=== PATIENT | male | born 1975 | race Caucasian/White ===

== ENCOUNTER 2024-08-17 08:40 | Inpatient (IN) | payer BC ==
[2024-08-17 09:19] LABS: Basophils % (A) 1 %; Eosinophils # (A) 0.1 k/uL (0-0.7); Eosinophils % (A) 1 %; HCT 48.8 % (39.0-53.0); HGB 17.2 gm/dL (13.0-17.5); Lymphocytes # (A) 2.2 k/uL (1.0-4.8); Lymphocytes % (A) 24 %; MCH 30.2 pg (25.0-35.0); MCHC 35.1 g/dL (31.0-37.0); MCV 85.9 fL (80.0-100.0); Monocytes # (A) 0.5 k/uL (0-1.0); Monocytes % (A) 5 %; Neutrophils # (A) 6.4 k/uL (1.3-7.7); Neutrophils % (A) 68 %; Platelet Count 214 k/uL (150-450); RBC 5.68 m/uL (4.30-5.90); RDW 13.6 % (11.5-15.5); WBC 9.4 k/uL (3.8-10.6)
[2024-08-17 09:29] LABS: ALT 20 U/L (4-49); AST 16 U/L (17-59); African American GFR (CKD) >90 (>60 ml/min/1.73 sqM); Albumin 4.6 g/dL (3.5-5.0); Alkaline Phosphatase 77 U/L (38-126); Anion Gap 15 mmol/L; Blood Urea Nitrogen 15 mg/dL (9-20); Calcium 10.1 mg/dL (8.4-10.2); Carbon Dioxide 22 mmol/L (22-30); Chloride 99 mmol/L (98-107); Glucose 212 mg/dL (74-99); Magnesium 1.7 mg/dL (1.6-2.3); Non-African American GFR(CKD) 86 (>60 ml/min/1.73 sqM); Potassium 3.8 mmol/L (3.5-5.1); Sodium 136 mmol/L (137-145); Total Bilirubin 1.6 mg/dL (0.2-1.3)
--- NOTE | 2024-08-17 09:30 | XR ---
EXAMINATION TYPE: XR chest 2V DATE OF EXAM: 08/17/2024 9:27 AM COMPARISON: None. CLINICAL INDICATION: Male, 49 years old with history of dysrhythmia, TECHNIQUE: XR chest 2V view(s) obtained. FINDINGS: The heart size is normal. The pulmonary vasculature is normal. The lungs are clear. IMPRESSION: 1. No acute pulmonary process. [facility], , 08/17/2024 9:28 AM
[2024-08-17 09:36] LABS: Partial Thromboplastin Time 22.8 sec (22.0-30.0); Prothrombin Time 10.9 sec (10.0-12.5)
[2024-08-17] MEDS ORDERED: HEPARIN SODIUM 1,000 UN/ML (10ML VL) IV PRN (09:40)
--- NOTE | 2024-08-17 09:50 | ED ---
General Adult HPI - General Chief complaint: Arrhythmia/Palpitations Stated complaint: AFIB Time Seen by Provider: 08/17/24 08:42 Source: patient Mode of arrival: wheelchair Limitations: no limitations - History of Present Illness Initial comments: Dictation was produced using [employer] dictation software. please excuse any grammatical, word or spelling errors. Chief Complaint: 49-year-old male presents with 4 days of palpitations History of Present Illness: Patient is a 49-year-old male has history of diabetes dyslipidemia hypertension states that for the last 3 to 4 days he started to have some palpitations. 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 States that his watch told that that he was having A-fib. Thought that he was coming down with a cold. He went online and read that he should seek medical attention if he has multiple days symptoms of A-fib. Patient complains of some mild associated left anterior chest pressure. No radiation of symptoms. No associated diaphoresis or nausea The ROS documented in this emergency department record has been reviewed and confirmed by me. Those systems with pertinent positive or negative responses have been documented in the HPI. All other systems are other negative and/or noncontributory. - Related Data Allergies Allergy/AdvReac Type Severity Reaction Status Date / Time No Known Allergies Allergy Verified 08/17/24 08:44 Review of Systems ROS Statement: Those systems with pertinent positive or pertinent negative responses have been documented in the HPI. ROS Other: All systems not noted in ROS Statement are negative. Past Medical History Past Medical History: Diabetes Mellitus, Hyperlipidemia, Hypertension Past Surgical History: Orthopedic Surgery Smoking Status: Never smoker Past Alcohol Use History: Occasional Past Drug Use History: None Reported General Exam - General Exam Comments Initial Comments: PHYSICAL EXAM: General Impression: Alert and oriented x3, not in acute distress HEENT: Normocephalic atraumatic, extra-ocular movements intact, pupils equal and reactive to light bilaterally, mucous membranes moist. Cardiovascular: H irregularly irregular Chest: Able to complete full sentences, no retractions, no tachypnea Abdomen: abdomen soft, non-tender, non-distended, no organomegaly Musculoskeletal: Pulses present and equal in all extremities, no peripheral edema Motor: no focal deficits noted Neurological: CN II-XII grossly intact, no focal motor or sensory deficits noted Skin: Intact with no visualized rashes Psych: Normal affect and mood Limitations: no limitations Course Vital Signs 08/17/24 08/17/24 08:44 09:17 Temperature 97.5 F L Pulse Rate 64 154 H Respiratory 20 20 Rate Blood Pressure 164/109 139/90 O2 Sat by Pulse 99 98 Oximetry EKG Findings - EKG Comments: EKG Findings:: My EKG interpretation: Ventricular rate 157, A-fib with RVR, QRS 89, QTc 367. No AK prolongation, no QTC prolongation, no ST or T-wave changes noted. Overall this EKG consistent with new onset A-fib Medical Decision Making - Medical Decision Making Was pt. sent in by a medical professional or institution (, PA, [facility], urgent care, hospital, or penitentiary...) When possible be specific @ -No Did you speak to anyone other than the patient for history (EMS, parent, family, police, friend...)? What history was obtained from this source @ -No Did you review nursing and triage notes (agree or disagree)? Why? @ -I reviewed and agree with nursing and triage notes Were old charts reviewed (outside hosp., previous admission, EMS record, old EKG, old radiological studies, urgent care reports/EKG's, penitentiary records)? Report findings @ -No old charts were reviewed Differential Diagnosis (chest pain, altered mental status, abdominal pain women, abdominal pain men, vaginal bleeding, musculoskeletal, weakness, fever, dyspnea, syncope, headache, dizziness, GI bleed, back pain, seizure, CVA, palpatations, mental health)? @ - Differential Palpitations: Ventricular arrhythmias, atrial arrhythmias, myocardial infarction, anemia, thyrotoxicosis, electrolyte imbalance, hypokalemia, pulmonary embolism, pulmonary disease, drugs, alcohol, anxiety, stress.... This is not meant to be an all-inclusive list. EKG interpreted by me (3pts min.). @ -See above X-rays interpreted by me (1pt min.). @ -Chest x-rays are nonacute CT interpreted by me (1pt min.). @ -None done U/S interpreted by me (1pt. min.). @ -None done What testing was considered but not performed or refused? (CT, X-rays, U/S, labs)? Why? @ -None What meds were considered but not given or refused? Why? @ -None Was smoking cessation discussed for >3mins.? @ -No Were there social determinants of health that impacted care today? How? (Homelessness, low income, unemployed, alcoholism, drug addiction, transportation, low edu. Level, literacy, decrease access to med. care, half-way, rehab)? @ -No Was there de-escalation of care discussed even if they declined (Discuss DNR or withdrawal of care, Hospice)? DNR status @ -No What co-morbidities impacted this encounter? (DM, HTN, Smoking, COPD, CAD, Cancer, CVA, ARF, Chemo, Hep., AIDS, mental health diagnosis, sleep apnea, morbid obesity)? @ -None Was patient admitted / discharged? Hospital course, mention meds given and route, prescriptions, significant lab abnormalities, going to OR and other pertinent info. @ -49-year-old male with new onset A-fib. Vital signs shows tachycardia. Rest of vital signs within acceptable limits. Laboratory evaluation is within acceptable limits. Patient started Cardizem and heparin. Will be admitted with consultation cardiology for inpatient management of new onset A-fib Did you discuss the management of the patient with other professionals (professionals i.e. , PA, [facility] CARVER, lab, RT, psych nurse, social media marketer, operations chief, teacher, security control room officer, shelter case manager)? Give summary @ -No Was critical care preformed (if so, how long)? @ -Yes, 33 minutes for management of tachydysrhythmia Undiagnosed new problem with uncertain prognosis? @ -No Drug Therapy requiring intensive monitoring for toxicity (Heparin, Nitro, Insulin, Cardizem)? @ -No Were any procedures done? @ -No Diagnosis/symptom? Acute, or Chronic, or Acute on Chronic? Uncomplicated (without systemic symptoms) or Complicated (systemic symptoms)? @ -A-fib with RVR Side effects of treatment? @ -No Exacerbation, Progression, or Severe Exacerbation? @ -No Poses a threat to life or bodily function? How? (Chest pain, USA, PA, pneumonia, PE, COPD, DKA, ARF, appy, cholecystitis, CVA, Diverticulitis, Homicidal, Suicidal, threat to staff... and all critical care pts) @ -yes - Lab Data Result diagrams: 08/17/24 09:15 01/13/25 09:15 Lab Results 08/17/24 08/17/24 08/17/24 Range/Units 09:15 09:15 09:15 WBC 9.4 (3.8-10.6) k/uL RBC 5.68 (4.30-5.90) m/uL Hgb 17.2 (13.0-17.5) gm/dL Hct 48.8 (39.0-53.0) % MCV 85.9 (80.0-100.0) fL MCH 30.2 (25.0-35.0) pg MCHC 35.1 (31.0-37.0) g/dL RDW 13.6 (11.5-15.5) % Plt Count 214 (150-450) k/uL MPV 9.0 Neutrophils % 68 % Lymphocytes % 24 % Monocytes % 5 % Eosinophils % 1 % Basophils % 1 % Neutrophils # 6.4 (1.3-7.7) k/uL Lymphocytes # 2.2 (1.0-4.8) k/uL Monocytes # 0.5 (0-1.0) k/uL Eosinophils # 0.1 (0-0.7) k/uL Basophils # 0.0 (0-0.2) k/uL PT 10.9 (10.0-12.5) sec INR 1.0 (<1.2) APTT 22.8 (22.0-30.0) sec Sodium 136 L (137-145) mmol/L Potassium 3.8 (3.5-5.1) mmol/L Chloride 99 (98-107) mmol/L Carbon Dioxide 22 (22-30) mmol/L Anion Gap 15 mmol/L BUN 15 (9-20) mg/dL Creatinine 1.03 (0.66-1.25) mg/dL Est GFR (CKD-EPI)AfAm >90 (>60 ml/min/1.73 sqM) Est GFR (CKD-EPI)NonAf 86 (>60 ml/min/1.73 sqM) Glucose 212 H (74-99) mg/dL Calcium 10.1 (8.4-10.2) mg/dL Magnesium 1.7 (1.6-2.3) mg/dL Total Bilirubin 1.6 H (0.2-1.3) mg/dL AST 16 L (17-59) U/L ALT 20 (4-49) U/L Alkaline Phosphatase 77 (38-126) U/L Troponin I (0.000-0.034) ng/mL Total Protein 7.0 (6.3-8.2) g/dL Albumin 4.6 (3.5-5.0) g/dL 08/17/24 Range/Units 09:15 WBC (3.8-10.6) k/uL RBC (4.30-5.90) m/uL Hgb (13.0-17.5) gm/dL Hct (39.0-53.0) % MCV (80.0-100.0) fL MCH (25.0-35.0) pg MCHC (31.0-37.0) g/dL RDW (11.5-15.5) % Plt Count (150-450) k/uL MPV Neutrophils % % Lymphocytes % % Monocytes % % Eosinophils % % Basophils % % Neutrophils # (1.3-7.7) k/uL Lymphocytes # (1.0-4.8) k/uL Monocytes # (0-1.0) k/uL Eosinophils # (0-0.7) k/uL Basophils # (0-0.2) k/uL PT (10.0-12.5) sec INR (<1.2) APTT (22.0-30.0) sec Sodium (137-145) mmol/L Potassium (3.5-5.1) mmol/L Chloride (98-107) mmol/L Carbon Dioxide (22-30) mmol/L Anion Gap mmol/L BUN (9-20) mg/dL Creatinine (0.66-1.25) mg/dL Est GFR (CKD-EPI)AfAm (>60 ml/min/1.73 sqM) Est GFR (CKD-EPI)NonAf (>60 ml/min/1.73 sqM) Glucose (74-99) mg/dL Calcium (8.4-10.2) mg/dL Magnesium (1.6-2.3) mg/dL Total Bilirubin (0.2-1.3) mg/dL AST (17-59) U/L ALT (4-49) U/L Alkaline Phosphatase (38-126) U/L Troponin I 0.022 (0.000-0.034) ng/mL Total Protein (6.3-8.2) g/dL Albumin (3.5-5.0) g/dL Disposition Clinical Impression: Atrial fibrillation Disposition: ADMITTED IP TO THIS HOSP Condition: Serious Referrals: Kelly Pate DO [Primary Care Provider] - 1-2 days Decision Time: 10:34
[2024-08-17] MEDS: HEPARIN SODIUM 1,000 UN/ML (10ML VL) IV ONE (09:57)
[2024-08-17] MEDS: HEPARIN SOD,PORK IN 0.45% NACL 25,000 UNIT in 0.45% NACL 1 250ML.BAG IV SCH (09:58)
[2024-08-17] MEDS: ASPIRIN 81 MG PO STA (10:00)
[2024-08-17] MEDS: DILTIAZEM 125 MG in SODIUM CHLORIDE 0.9% 100 ML IV SCH (10:17)
[2024-08-17] MEDS: DILTIAZEM DRIP BOLUS FROM BAG 1 MG SOLN IV ONE (10:19)
[2024-08-17] MEDS ORDERED: NALOXONE 0.4 MG/ML 1 ML VIAL IV PRN (10:32)
[2024-08-17] MEDS: SODIUM CHLORIDE 0.9% 1,000 ML IV SCH (11:10)
[2024-08-17] MEDS ORDERED: DEXTROSE 50% SYRINGE 50 ML IVP PRN ×2 (12:23)
[2024-08-17 12:43] LABS: Glucose,Whole Blood 128 mg/dL (70-110)
[2024-08-17] MEDS: INSULIN ASPART (NovoLOG) 100 UNIT/ML VIAL SQ SCH (12:55)
[2024-08-17] MEDS: APIXABAN 5 MG TAB PO SCH (12:58)
[2024-08-17] MEDS: METOPROLOL TARTRATE 50 MG TAB PO SCH (12:58)
--- NOTE | 2024-08-17 13:07 | P.CRDCN ---
History of Present Illness Consult date: 08/17/24 History of present illness: - . HPI: This is a 49-year-old somewhat obese gentleman with type 2 diabetes hypertension hyperlipidemia came into the emergency room complaining of palpitations at least for the last 72 hours. This started on Saturday. 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 He also had a flulike illness as well. With this symptoms he came in and he is in atrial fibrillation with a moderate ventricular rate. He seems to be handling the arrhythmia well no chest pain to suggest angina. Troponin levels are unremarkable. EKG suggests atrial fibrillation with a nonspecific ST-T changes. He has been initiated on heparin and Cardizem drip. I am recommending that I will initiate him on Eliquis discontinue heparin after Eliquis is given and then add metoprolol tartrate 50 mg twice daily and hopef ully with rate control he will improve. I will also set up for an echocardiogram. I explained to the patient the rationale for medications and suggested that he will need lifelong anticoagulation.. RELEVANT PAST MEDICAL HISTORY: Hypertension, type 2 diabetes with a hemoglobin A1c of 7.7 and also hyperlipidemia. He has a strong family history of premature CAD. MEDICATIONS: ALLERGIES:. REVIEW OF SYSTEMS:. PHYSICIAL EXAM: Vitals are stable no JVD S1-S2 heard normally with irregularity and rhythm lungs reveal decent air entry abdomen is soft lower extremities reveal normal pulses no edema Central nervous system is normal. IMPRESSION: 1. New onset atrial fibrillation with rapid ventricular rate. 2. Type 2 diabetes mellitus. 3. Benign hypertension. 4. Hypercholesterolemia. 5. Obesity. RECOMMENDATIONS: We will place him on Eliquis 5 mg twice daily discontinue heparin after Eliquis is given, metoprolol tartrate 50 mg twice daily and continue Cardizem drip for rate control. Hopefully will convert to sinus rhythm I will obtain echocardiogram. Findings reviewed with patient and family and the plan reviewed with patient and family.. Past Medical History Past Medical History: Diabetes Mellitus, Hyperlipidemia, Hypertension Past Surgical History: Orthopedic Surgery Smoking Status: Never smoker Past Alcohol Use History: Occasional Past Drug Use History: None Reported Medications and Allergies Home Medications Medication Instructions Recorded Confirmed Type Atorvastatin [Lipitor] 20 mg PO DAILY 08/17/24 08/17/24 History Losartan [Cozaar] 50 mg PO DAILY 08/17/24 08/17/24 History Naproxen Sodium [Aleve] 220 mg PO BID PRN 08/17/24 08/17/24 History Pioglitazone [Actos] 30 mg PO DAILY 08/17/24 08/17/24 History busPIRone HCL [Buspar] 7.5 mg PO BID 08/17/24 08/17/24 History metFORMIN HCL 1,000 mg PO BID 08/17/24 08/17/24 History Allergies Allergy/AdvReac Type Severity Reaction Status Date / Time No Known Allergies Allergy Verified 08/17/24 10:58 Physical Exam Vitals: Vital Signs Temp Pulse Resp BP Pulse Ox 08/17/24 12:03 98 16 103/79 96 08/17/24 09:17 154 H 20 139/90 98 08/17/24 08:44 97.5 F L 64 20 164/109 99 Intake and Output 08/16/24 08/17/24 08/17/24 22:59 06:59 14:59 Intake Total 25.987 Balance 25.987 Intake: Intake, IV Titration 25.987 Amount Heparin Sod,Pork in 0.45% 25.987 NaCl 25,000 unit In 0.45 % NaCl 1 250ml.bag @ 7.87 UNITS/KG/HR 9.995 mls/hr IV .Q24H [facility] Rx#: [id number] Other: Weight 127.006 kg Results 08/17/24 09:15 08/17/24 09:15 Cardiac Enzymes 08/17/24 08/17/24 Range/Units 09:15 09:15 AST 16 L (17-59) U/L Troponin I 0.022 (0.000-0.034) ng/mL Coagulation 08/17/24 Range/Units 09:15 PT 10.9 (10.0-12.5) sec APTT 22.8 (22.0-30.0) sec CBC 08/17/24 Range/Units 09:15 WBC 9.4 (3.8-10.6) k/uL RBC 5.68 (4.30-5.90) m/uL Hgb 17.2 (13.0-17.5) gm/dL Hct 48.8 (39.0-53.0) % Plt Count 214 (150-450) k/uL Comprehensive Metabolic Panel 08/17/24 Range/Units 09:15 Sodium 136 L (137-145) mmol/L Potassium 3.8 (3.5-5.1) mmol/L Chloride 99 (98-107) mmol/L Carbon Dioxide 22 (22-30) mmol/L BUN 15 (9-20) mg/dL Creatinine 1.03 (0.66-1.25) mg/dL Glucose 212 H (74-99) mg/dL Calcium 10.1 (8.4-10.2) mg/dL AST 16 L (17-59) U/L ALT 20 (4-49) U/L Alkaline Phosphatase 77 (38-126) U/L Total Protein 7.0 (6.3-8.2) g/dL Albumin 4.6 (3.5-5.0) g/dL Current Medications Generic Name Dose Route Start Last Admin Trade Name Freq PRN Reason Stop Dose Admin Apixaban 5 mg 08/17/24 12:30 08/17/24 12:58 Apixaban 5 Mg Tab PO 5 mg BID CAROLE Administration Protocol Dextrose/Water 25 ml 08/17/24 12:23 Dextrose 50% Syringe 50 Ml IVP PER PROTOCOL PRN Hypoglycemia Protocol Dextrose/Water 50 ml 08/17/24 12:23 Dextrose 50% Syringe 50 Ml IVP PER PROTOCOL PRN Hypoglycemia Protocol Heparin Sodium (Porcine) 0 unit 08/17/24 09:40 Heparin Sodium 1,000 Un/Ml (10ml Vl) IV 08/17/24 13:30 PER PROTOCOL PRN Low PTT Protocol Heparin Sodium/Sodium Chloride 250 mls @ 9.995 mls/hr 08/17/24 09:45 08/17/24 12:34 25,000 unit/ Sodium Chloride IV 08/17/24 13:30 0 units/kg/hr .Q24H CAROLE 0 mls/hr Titration Protocol 7.87 UNITS/KG/HR Diltiazem HCl 125 mg/ Sodium 125 mls @ 10 mls/hr 08/17/24 09:45 08/17/24 10:17 Chloride IV 10 mg/hr .[id number] CAROLE 10 mls/hr Administration 10 MG/HR Sodium Chloride 1,000 mls @ 75 mls/hr 08/17/24 10:45 08/17/24 11:10 Saline 0.9% IV 75 mls/hr .[id number] CAROLE Administration Insulin Aspart 0 unit 08/17/24 12:30 08/17/24 12:55 Insulin Aspart (Novolog) 100 Unit/Ml Vial SQ Not Given AC-TID [facility] Protocol Metoprolol Tartrate 50 mg 08/17/24 12:30 08/17/24 12:58 Metoprolol Tartrate 50 Mg Tab PO 50 mg BID CAROLE Administration Naloxone HCl 0.2 mg 08/17/24 10:32 Naloxone 0.4 Mg/Ml 1 Ml Vial IV Q2M PRN Opioid Reversal Intake and Output 08/16/24 08/17/24 08/17/24 22:59 06:59 14:59 Intake Total 25.987 Balance 25.987 Intake: Intake, IV Titration 25.987 Amount Heparin Sod,Pork in 0.45% 25.987 NaCl 25,000 unit In 0.45 % NaCl 1 250ml.bag @ 7.87 UNITS/KG/HR 9.995 mls/hr IV .Q24H [facility] Rx#: [id number] Other: Weight 127.006 kg Patient Weight 08/18/24 06:59 Weight 127.006 kg 08/17/24 09:15 08/17/24 09:15
--- NOTE | 2024-08-17 13:40 | P.HPIM ---
History of Present Illness H&P Date: 08/17/24 Chief Complaint: Palpitation Very pleasant 49-year-old patient follows with Dr. Kelly Pate. Chronic stable medical conditions include anxiety, diabetes type 2, hypertension, hyperlipidemia. Otherwise in good health rather active. On Saturday that is 3 days ago patient's Apple Watch showed atrial fibrillation. Heart rate anywhere from 70-1 70. Over the weekend patient felt some thumping in the chest and palpitation. Slight shortness of breath. Also was feeling unwell yesterday. Lightheaded today. Presented to the ER. EKG showed a heart rate of 157. Was started on IV Cardizem IV heparin. No prior history of the same. Patient is accompanied by his in the ER. Review of systems: GEN.: Tired EYES: None HEENT: None NECK: None RESPIRATORY: As above CARDIOVASCULAR: [As above GASTROINTESTINAL: None GENITOURINARY: None MUSCULOSKELETAL: None LYMPHATICS: None HEMATOLOGICAL: None PSYCHIATRY: None NEUROLOGICAL: None Social history: with 3 daughters. Does not smoke. About drinks once a month. 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 Physical examination: VITAL SIGNS: 97.5, 154, 20, 139 x 90, 98% room air upon presentation GENERAL: BMI 36.9, reclining bed awake comfortable. EYES: Pupils equal. Conjunctiva fidencio l. HEENT: External appearance of nose and ears normal, oral cavity grossly normal. NECK: JVD not raised; masses not palpable. HEART: Heart sounds irregular; no edema]. LUNGS: Respiratory rate normal; clear to auscultation. ABDOMEN: Soft, nontender, liver spleen not palpable, no masses palpable. PSYCH: Alert and oriented x3; mood and affect fidencio l. MUSCULOSKELETAL:No Clubbing/cyanosis;muscles-grossly intact NEUROLOGICAL: Cranial nerves grossly intact; no facial asymmetry, power and sensation grossly intact. LYMPHATICS: No lymph nodes palpable in the axilla and neck INVESTIGATIONS, reviewed in the clinical context: August 17: White count 9.4 hemoglobin 7.2 platelets 214 sodium 136 potassium 3.8 creatinine 1.03 total bilirubin 1.6 Troponin I 0.022 EKG tracing personally reviewed by me-Megan-fib. Rate 157 Chest x-ray film personally reviewed by me-unremarkable Assessment plan: -New onset of atrial fibrillation discovered 3 days ago on patient's Apple Watch heart rate ranging anywhere from 70-1 70. ER EKG with a heart rate of 157. Symptomatic IV Cardizem drip drip. IV heparin drip. Cardiology consulted. 2D echocardiogram. -Obesity BMI 36.9 Weight loss measures -Anxiety not otherwise specified BuSpar 7.5 mg p.o. twice daily -Diabetes mellitus type 2 on oral hypoglycemic Actos 30 mg a day. Metformin 1000 mg twice daily. Diabetic diet. Accu-Cheks with sliding scale insulin. -Essential hypertension Cozaar 50 mg a day Care was discussed with patient at the bedside. Questions answered. Past Medical History Past Medical History: Diabetes Mellitus, Hyperlipidemia, Hypertension Past Surgical History: Orthopedic Surgery Smoking Status: Never smoker Past Alcohol Use History: Occasional Past Drug Use History: None Reported Medications and Allergies Home Medications Medication Instructions Recorded Confirmed Type Atorvastatin [Lipitor] 20 mg PO DAILY 08/17/24 08/17/24 History Losartan [Cozaar] 50 mg PO DAILY 08/17/24 08/17/24 History Naproxen Sodium [Aleve] 220 mg PO BID PRN 08/17/24 08/17/24 History Pioglitazone [Actos] 30 mg PO DAILY 08/17/24 08/17/24 History busPIRone HCL [Buspar] 7.5 mg PO BID 08/17/24 08/17/24 History metFORMIN HCL 1,000 mg PO BID 08/17/24 08/17/24 History Allergies Allergy/AdvReac Type Severity Reaction Status Date / Time No Known Allergies Allergy Verified 08/17/24 10:58 Physical Exam Vitals: Vital Signs Temp Pulse Resp BP Pulse Ox 08/17/24 12:03 98 16 103/79 96 08/17/24 09:17 154 H 20 139/90 98 08/17/24 08:44 97.5 F L 64 20 164/109 99 Intake and Output 08/16/24 08/17/24 08/17/24 22:59 06:59 14:59 Intake Total 25.987 Balance 25.987 Intake: Intake, IV Titration 25.987 Amount Heparin Sod,Pork in 0.45% 25.987 NaCl 25,000 unit In 0.45 % NaCl 1 250ml.bag @ 7.87 UNITS/KG/HR 9.995 mls/hr IV .Q24H [facility] Rx#: [id number] Other: Weight 127.006 kg Results CBC & Chem 7: 08/17/24 09:15 08/17/24 09:15 Labs: Abnormal Lab Results - Last 24 Hours (Table) 08/17/24 08/17/24 Range/Units 09:15 12:42 Sodium 136 L (137-145) mmol/L Glucose 212 H (74-99) mg/dL POC Glucose (mg/dL) 128 H (70-110) mg/dL Total Bilirubin 1.6 H (0.2-1.3) mg/dL AST 16 L (17-59) U/L
[2024-08-17 16:44] LABS: Glucose,Whole Blood 140 mg/dL (70-110)
[2024-08-17] MEDS: ACETAMINOPHEN TAB 500 MG TAB PO PRN (19:34)
[2024-08-17 22:57] LABS: Glucose,Whole Blood 186 mg/dL (70-110)
[2024-08-18 06:08] LABS: Glucose,Whole Blood 161 mg/dL (70-110)
--- NOTE | 2024-08-18 07:21 | CA ---
Transthoracic Echo Report Name: Usman Boone Age: 49 Gender: M : 1975 Exam Date: 08/17/2024 14:53 Exam Location: [facility] Ht (in): 73 Wt (lb): 280 Ordering Physician: Mikey Mcrae MD ([id number]) Attending/Referring Phys: Registered Radiographer Opal Marshall RDCS Procedure CPT: Indications: Afib new onset eval LVFX Cardiac Hx: Technical Quality: Technically difficult study Contrast 1: Definity Total Dose (mL): 1 Contrast 2: Total Dose (mL): MEASUREMENTS (Male / Female) Normal Values 2D ECHO LV Diastolic Diameter PLAX 4.6 cm 4.2 - 5.9 / 3.9 - 5.3 cm LV Systolic Diameter PLAX 3.3 cm IVS Diastolic Thickness 1.1 cm 0.6 - 1.0 / 0.6 - 0.9 cm LVPW Diastolic Thickness 1.3 cm 0.6 - 1.0 / 0.6 - 0.9 cm LV Relative Wall Thickness 0.5 LVOT Diameter 2.6 cm LV Diastolic Volume MOD BP 152.8 cm??? 67 - 155 / 56 - 104 cm??? LV Systolic Volume MOD BP 115.1 cm??? 22 - 58 / 19 - 49 cm??? LV Ejection Fraction MOD BP 24.6 % >= 55 % LV Cardiac Index MOD BP 1214.0 cm???/min???m??? LV Diastolic Volume MOD 4C 175.9 cm??? LV Systolic Volume MOD 4C 126.5 cm??? LV Ejection Fraction MOD 4C 28.1 % LV Cardiac Index MOD 4C 1596.7 cm???/min???m??? LV Diastolic Length 4C 8.9 cm LV Systolic Length 4C 8.4 cm LV Diastolic Volume MOD 2C 128.4 cm??? LV Systolic Volume MOD 2C 92.7 cm??? LV Ejection Fraction MOD 2C 27.8 % LV Cardiac Index MOD 2C 1152.9 cm???/min???m??? LV Diastolic Length 2C 8.6 cm LV Systolic Length 2C 7.4 cm LA Volume 68.9 cm??? 18 - 58 / 22 - 52 cm??? LA Volume Index 26.5 cm???/m??? 16 - 28 cm???/m??? DOPPLER AV Peak Velocity 132.7 cm/s AV Peak Gradient 7.0 mmHg AV Mean Velocity 96.6 cm/s AV Mean Gradient 4.2 mmHg AV Velocity Time Integral 24.6 cm LVOT Peak Velocity 80.9 cm/s LVOT Peak Gradient 2.6 mmHg LVOT Velocity Time Integral 13.9 cm LVOT Stroke Volume 72.3 cm??? LVOT Stroke Volume Index 29.1 ml/m??? LVOT Cardiac Index 2333.9 cm???/min???m??? AV Area Cont Eq vti 2.9 cm??? AV Area Cont Eq pk 3.2 cm??? FINDINGS Left Ventricle Left ventricular ejection fraction is estimated at 30-35 % . Mildly increased septal wall thickness. Severely increased left ventricular systolic volume. Severely decreased left ventricular ejection fraction. Right Ventricle Right ventricular dilatation. Unable to estimate the right ventricular systolic pressure. Right Atrium Normal right atrial size. Left Atrium Mildly increased left atrial volume. Mitral Valve Structurally normal mitral valve. No mitral stenosis, or prolapse.mild mitral regurgitation. Aortic Valve Bicuspid aortic valve. [place]he between right and left cusp. No aortic stenosis. Mild to moderate aortic regurgitation. Tricuspid Valve Structurally normal tricuspid valve. No tricuspid stenosis, regurgitation or prolapse. Pulmonic Valve Pulmonic valve not well visualized. No pulmonic stenosis. Trace pulmonic regurgitation. Pericardium No pericardial effusion. Aorta Normal size aortic root and proximal ascending aorta. CONCLUSIONS Technically difficult study. Definity ECHO contrast used for improved visualization of the endocardial borders (inadequate visualization of two or more contiguous segments). Severe global hypokinesis of the left ventricle Bicuspid aortic valve with mild to moderate aortic regurgitation Mild mitral regurgitation Previewed by: Dr. Eneida Mcadams MD (Electronically Signed) Final Date: 18 August 2024 07:20
--- NOTE | 2024-08-18 10:34 | P.PN ---
Subjective Progress Note Date: 08/18/24 HPI: This gentleman has diabetes and was seen by me yesterday when he presented with atrial fibrillation and a moderately rapid ventricular rate. On 50 mg twice daily of metoprolol his rate is now well-controlled. Echocardiogram revealed reduced ejection fraction of about 35% with bicuspid aortic valve and mild to moderate regurgitation but no significant stenosis. I explained the findings to the patient. We will try and see if he can pharmacologically convert him to sinus rhythm with amiodarone intravenously today. Thyroid functions will also be checked. Patient clinically appears to be quite stable. I will add a small dose of Aldactone and 20 mg of Lasix orally increase activity and based on his clinical progress will make further recommendations. If he converts to sinus rhythm he will be discharged otherwise we will achieve rate control and discharge him. Will continue Eliquis. PHYSICIAL EXAM: Blood pressure is about 110/60 pulse rate is in the 70-80 range irregular no JVD S1-S2 heard normally irregularity and rhythm noted lungs are clear abdomen is distended nontender lower extremities reveal palpable pulses no edema Central nervous system is normal. IMPRESSION: 1. New onset atrial fibrillation with controlled ventricular rate. 2. Bicuspid aortic valve with mild to moderate regurgitation no stenosis patient has a family history of same. 3. Type 2 diabetes mellitus. 4. Benign hypertension. 5. Hypercholesterolemia. RECOMMENDATIONS: We will try IV amiodarone to see if he can convert him to sinus rhythm continue Eliquis, reduce beta-blockers to 25 mg twice daily metoprolol tartrate. Echo findings explained. Will add a small dose of Aldactone and Lasix. Possible discharge tomorrow discussed my thoughts in detail with the patient. Objective - Vital Signs Vital signs: Vital Signs Temp 97.9 F 08/18/24 04:16 Pulse 61 08/18/24 08:31 Resp 16 08/18/24 08:31 BP 117/73 08/18/24 08:31 Pulse Ox 97 08/18/24 08:31 FiO2 Intake & Output 08/17/24 08/18/24 08/18/24 18:59 06:59 18:59 Intake Total 26.154 540 180 Balance 26.154 540 180 Weight 127.006 kg 127.3 kg Intake: Intake, IV Titration 26.154 Amount Diltiazem 125 mg In 0.167 Sodium Chloride 0.9% 100 ml @ 10 MG/HR 10 mls/hr IV .[id number] [facility] Rx#: [id number] Heparin Sod,Pork in 0.45% 25.987 NaCl 25,000 unit In 0.45 % NaCl 1 250ml.bag @ 7.87 UNITS/KG/HR 9.995 mls/hr IV .Q24H [facility] Rx#: [id number] Oral 540 180 Other: Voiding Method Toilet # Voids 1 - Labs CBC & Chem 7: 08/17/24 09:15 08/17/24 09:15 Labs: Abnormal Lab Results - Last 24 Hours (Table) 08/17/24 08/17/24 08/17/24 Range/Units 09:15 12:42 16:42 POC Glucose (mg/dL) 128 H 140 H (70-110) mg/dL Hemoglobin A1c 7.2 H (<=6.0) % 08/17/24 08/18/24 Range/Units 22:55 06:06 POC Glucose (mg/dL) 186 H 161 H (70-110) mg/dL Hemoglobin A1c (<=6.0) %
[2024-08-18] MEDS: SPIRONOLACTONE 25 MG TAB PO SCH (11:04)
[2024-08-18] MEDS: LOSARTAN 25 MG TAB PO SCH (11:05)
[2024-08-18] MEDS: DEXTROSE 5% IN WATER 100 ML with AMIODARONE 150 MG IV ONE (11:05)
[2024-08-18] MEDS: FUROSEMIDE 20 MG TAB PO SCH (11:05)
[2024-08-18 11:17] LABS: Glucose,Whole Blood 175 mg/dL (70-110)
[2024-08-18] MEDS: AMIODARONE 360 MG in DEXTROSE 5% IN WATER 200 ML IV ONE (11:27)
[2024-08-18 16:24] LABS: Glucose,Whole Blood 163 mg/dL (70-110)
--- NOTE | 2024-08-18 16:32 | P.PN ---
Progress Note - Text Progress Note Date: 08/18/24 Chief Complaint: Palpitation Very pleasant 49-year-old patient follows with Dr. Kelly Pate. Chronic stable medical conditions include anxiety, diabetes type 2, hypertension, hyperlipidemia. Otherwise in good health rather active. On Saturday that is 3 days ago patient's Apple Watch showed atrial fibrillation. Heart rate anywhere from 70-1 70. Over the weekend patient felt some thumping in the chest and palpitation. Slight shortness of breath. Also was feeling unwell yesterday. Lightheaded today. Presented to the ER. EKG showed a heart rate of 157. Was started on IV Cardizem IV heparin. No prior history of the same. Patient is accompanied by his in the ER. August 18: Per cardiology patient was started on IV amiodarone today. He is on Lopressor 25 twice daily and Cozaar 25 mg a day. Off Cardizem. 2D echo showed a EF of 30 to 35%. Also bicuspid aortic valve. Breathing is better. Discussed with patient and . Heart rate remains above 100 this morning. Active Medications Acetaminophen (Acetaminophen Tab 500 Mg Tab) 500 mg PO Q6HR PRN PRN Reason: Fever and/ or Pain Last Admin: 08/17/24 19:34 Dose: 500 mg Apixaban (Apixaban 5 Mg Tab) 5 mg PO BID [facility]; Protocol Last Admin: 08/18/24 08:38 Dose: 5 mg Dextrose/Water (Dextrose 50% Syringe 50 Ml) 25 ml IVP PER PROTOCOL PRN; Protocol PRN Reason: Hypoglycemia Dextrose/Water (Dextrose 50% Syringe 50 Ml) 50 ml IVP PER PROTOCOL PRN; Oscar col PRN Reason: Hypoglycemia Furosemide (Furosemide 20 Mg Tab) 20 mg PO DAILY [facility] Last Admin: 08/18/24 11:05 Dose: 20 mg Amiodarone HCl 450 mg/ (Dextrose/Water) 250 mls @ 16.667 mls/hr IV .Q15H [facility]; Protocol Stop: 08/19/24 10:29 Insulin Aspart (Insulin Aspart (Novolog) 100 Unit/Ml Vial) 0 unit SQ AC-TID [facility]; Protocol Last Admin: 08/18/24 12:25 Dose: 2 unit Losartan Potassium (Losartan 25 Mg Tab) 25 mg PO DAILY [facility] Last Admin: 08/18/24 11:05 Dose: 25 mg Metoprolol Tartrate (Metoprolol Tartrate 25 Mg Tab) 25 mg PO BID [facility] Naloxone HCl (Naloxone 0.4 Mg/Ml 1 Ml Vial) 0.2 mg IV Q2M PRN PRN Reason: Opioid Reversal Spironolactone (Spironolactone 25 Mg Tab) 12.5 mg PO DAILY [facility] Last Admin: 08/18/24 11:04 Dose: 12.5 mg Social history: with 3 daughters. Does not smoke. About drinks once a month. 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 Physical examination: VITAL SIGNS: Afebrile, 91, 16, 105 x 71, 98% room air GENERAL: BMI 36.9, reclining in bed, comfortable EYES: Pupils equal. Conjunctiva fidencio l. HEENT: External appearance of nose and ears normal, oral cavity grossly normal. NECK: JVD not raised; masses not palpable. HEART: Heart sounds irregular; no edema]. LUNGS: Respiratory rate normal; clear to auscultation. ABDOMEN: Soft, nontender, liver spleen not palpable, no masses palpable. PSYCH: Alert and oriented x3; mood and affect fidencio l. MUSCULOSKELETAL:No Clubbing/cyanosis;muscles-grossly intact INVESTIGATIONS, reviewed in the clinical context: 2D echocardiogram: EF 3035%. Mild to moderate aortic regurgitation with bicuspid aortic valve. August 17: White count 9.4 hemoglobin 7.2 platelets 214 sodium 136 potassium 3.8 creatinine 1.03 total bilirubin 1.6 Troponin I 0.022 EKG tracing personally reviewed by me-A-fib. Rate 157 Chest x-ray film personally reviewed by me-unremarkable Assessment plan: -New onset of atrial fibrillation discovered 3 days ago on patient's Apple Watch heart rate ranging anywhere from 70-1 70. ER EKG with a heart rate of 157. Symptomatic: Slow to respond IV Cardizem drip and IV heparin drip given initially. Eliquis. Started on IV amiodarone today.. Cardiology following -Cardiomyopathy EF 30-35%. Could be atrial fibrillation related. Rule out secondary cause. Lopressor. Cozaar. -Obesity BMI 36.9 Weight loss measures -Anxiety not otherwise specified BuSpar 7.5 mg p.o. twice daily -Diabetes mellitus type 2 on oral hypoglycemic Actos 30 mg a day. Metformin 1000 mg twice daily. Diabetic diet. Accu-Cheks with sliding scale insulin. -Essential hypertension Lopressor 25 twice daily. Cozaar 25 mg a day. Care was discussed with patient and his at the bedside. IV amiodarone started.. Cardioversion possible. Past Medical History Past Medical History: Diabetes Mellitus, Hyperlipidemia, Hypertension Past Surgical History: Orthopedic Surgery Smoking Status: Never smoker Past Alcohol Use History: Occasional Past Drug Use History: None Reported
[2024-08-18] MEDS: AMIODARONE 450 MG in DEXTROSE 5% IN WATER 250 ML IV SCH (17:22)
[2024-08-18 20:03] LABS: Glucose,Whole Blood 124 mg/dL (70-110)
[2024-08-18] MEDS: METOPROLOL TARTRATE 25 MG TAB PO SCH (21:03)
[2024-08-19 05:51] LABS: Glucose,Whole Blood 195 mg/dL (70-110)
[2024-08-19 10:11] VITALS: RESP 16
[2024-08-19] MEDS: AMIODARONE 200 MG TAB PO SCH (10:39)
--- NOTE | 2024-08-19 11:21 | P.PN ---
Subjective Progress Note Date: 08/19/24 HPI: This gentleman has diabetes and was seen by me yesterday when he presented with atrial fibrillation and a moderately rapid ventricular rate. On 50 mg twice daily of metoprolol his rate is now well-controlled. Echocardiogram revealed reduced ejection fraction of about 35% with bicuspid aortic valve and mild to moderate regurgitation but no significant stenosis. I explained the findings to the patient. We will try and see if he can pharmacologically convert him to sinus rhythm with amiodarone intravenously today. Thyroid functions will also be checked. Patient clinically appears to be quite stable. I will add a small dose of Aldactone and 20 mg of Lasix orally increase activity and based on his clinical progress will make further recommendations. If he converts to sinus rhythm he will be discharged otherwise we will achieve rate control and discharge him. Will continue Eliquis. 08/19/24 Patient feels much better today. He remains in atrial fibrillation but the rate is much better controlled. He is tolerating the current medical regimen well which includes beta-kaci amiodarone spironolactone and also small dose of Lasix. He has a bicuspid aortic valve without significant stenosis probably mild to moderate regurgitation. We will discharge him with rate control including Eliquis and I will see him in the office in about a week or so and then make further recommendations. His cardiomyopathy could be related to atrial fibrillation. However after we convert him to sinus rhythm either pharmacologically or with electrical cardioversion we will reassess LV function and then make further recommendations. Discussed my thoughts in detail with the patient PHYSICIAL EXAM: Blood pressure is about 110/60 pulse rate is in the 70-80 range irregular no JVD S1-S2 heard normally irregularity and rhythm noted lungs are clear abdomen is distended nontender lower extremities reveal palpable pulses no edema Central nervous system is normal. IMPRESSION: 1. New onset atrial fibrillation with controlled ventricular rate. 2. Bicuspid aortic valve with mild to moderate regurgitation no stenosis patient has a family history of same. 3. Type 2 diabetes mellitus. 4. Benign hypertension. 5. Hypercholesterolemia. RECOMMENDATIONS: Same medical regimen okay for discharge will see him in 1 week reviewed with him the future plans including reassessment of lymph LV function while in sinus rhythm. Office visit in a week. To call for questions Objective - Vital Signs Vital signs: Vital Signs Temp 97.9 F 08/19/24 08:00 Pulse 84 08/19/24 08:00 Resp 16 08/19/24 08:00 BP 127/91 08/19/24 08:00 Pulse Ox 97 08/19/24 08:00 FiO2 Intake & Output 08/18/24 08/19/24 08/19/24 18:59 06:59 18:59 Intake Total 540 430 Balance 540 430 Weight 126.2 kg Intake: Intake, IV Titration 250 Amount Amiodarone 450 mg In 250 Dextrose 5% in Water 250 ml @ 0.5 MG/MIN 16.667 mls/hr IV .Q15H [facility] Rx#: [id number] Oral 540 180 Other: Voiding Method Toilet Toilet # Voids 1 - Labs CBC & Chem 7: 08/17/24 09:15 08/17/24 09:15 Labs: Abnormal Lab Results - Last 24 Hours (Table) 08/18/24 08/18/24 08/18/24 Range/Units 11:15 16:22 20:01 POC Glucose (mg/dL) 175 H 163 H 124 H (70-110) mg/dL 08/19/24 Range/Units 05:50 POC Glucose (mg/dL) 195 H (70-110) mg/dL
[2024-08-19 11:33] LABS: Glucose,Whole Blood 187 mg/dL (70-110)
[2024-08-19 14:07] VITALS: BP 112/75; PULSE 80; TEMP 98.3
--- NOTE | 2024-08-20 21:20 | P.DS ---
Providers Date of admission: 08/17/24 10:32 Expected date of discharge: 08/19/24 Attending physician: Santino Felipe Consults: 08/17/24 09:42 Consult Physician Routine Consulting Provider: Sunil Marin Consult Reason/Comments: new afib Do you want consulting provider notified?: Yes Primary care physician: Kelly Pate [facility] Course: Chief Complaint: Palpitation Very pleasant 49-year-old patient follows with Dr. Kelly Pate. Chronic stable medical conditions include anxiety, diabetes type 2, hypertension, hyperlipidemia. Otherwise in good health rather active. On Saturday that is 3 days ago patient's Apple Watch showed atrial fibrillation. Heart rate anywhere from 70-1 70. Over the weekend patient felt some thumping in the chest and palpitation. Slight shortness of breath. Also was feeling unwell yesterday. Lightheaded today. Presented to the ER. EKG showed a heart rate of 157. Was started on IV Cardizem IV heparin. No prior history of the same. Patient is accompanied by his in the ER. August 18: Per cardiology patient was started on IV amiodarone today. He is on Lopressor 25 twice daily and Cozaar 25 mg a day. Off Cardizem. 2D echo showed a EF of 30 to 35%. Also bicuspid aortic valve. Breathing is better. Discussed with patient and . Heart rate remains above 100 this morning. August 19: Patient feeling better. Being discharged home on Cozaar Lopressor Aldactone amiodarone Eliquis Lasix. Fluid restriction. Questions discussed in detail with the patient at the bedside. Follow-up with Dr. MARU Mcrae outpatient. Discussion and discharge planning more than 35 minutes Social history: with 3 daughters. Does not smoke. About drinks once a month. 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 Physical examination: VITAL SIGNS: r 98.3, 80, 16, 112 x 75, 97% room air GENERAL: BMI 36.9, reclining in bed, comfortable EYES: Pupils equal. Conjunctiva fidencio l. HEENT: External appearance of nose and ears normal, oral cavity grossly normal. NECK: JVD not raised; masses not palpable. HEART: Heart sounds irregular; no edema]. LUNGS: Respiratory rate normal; clear to auscultation. ABDOMEN: Soft, nontender, liver spleen not palpable, no masses palpable. PSYCH: Alert and oriented x3; mood and affect fidencio l. MUSCULOSKELETAL:No Clubbing/cyanosis;muscles-grossly intact INVESTIGATIONS, reviewed in the clinical context: 2D echocardiogram: EF 3035%. Mild to moderate aortic regurgitation with bicuspid aortic valve. August 17: White count 9.4 hemoglobin 7.2 platelets 214 sodium 136 potassium 3.8 creatinine 1.03 total bilirubin 1.6 Troponin I 0.022 EKG tracing personally reviewed by me-Megan-fib. Rate 157 Chest x-ray film personally reviewed by me-unremarkable Assessment plan: -New onset of atrial fibrillation discovered 3 days ago on patient's Apple Watch heart rate ranging anywhere from 70-1 70. ER EKG with a heart rate of 157. Symptomatic: IV Cardizem drip and IV heparin drip given initially. Eliquis. Received IV amiodarone. y. Discharged on Lopressor 25 twice daily. Amiodarone loading. Eliquis. Cardiology following -Cardiomyopathy EF 30-35%. Could be atrial fibrillation related. Rule out secondary cause. Lopressor. Cozaar. Follow-up with Dr. MARU Mcrae outpatient. -Obesity BMI 36.9 Weight loss measures -Bicuspid arctic valve Follow-up with cardiology outpatient -Anxiety not otherwise specified BuSpar 7.5 mg p.o. twice daily -Diabetes mellitus type 2 on oral hypoglycemic Actos 30 mg a day. Metformin 1000 mg twice daily. Diabetic diet. Accu-Cheks with sliding scale insulin. -Essential hypertension Lopressor 25 twice daily. Cozaar 25 mg a day. -Full code Disposition: Home Past Medical History Past Medical History: Diabetes Mellitus, Hyperlipidemia, Hypertension Past Surgical History: Orthopedic Surgery Smoking Status: Never smoker Past Alcohol Use History: Occasional Past Drug Use History: None Reported Plan - Discharge Summary Discharge Rx Participant: No New Discharge Prescriptions: New Losartan [Cozaar] 25 mg PO DAILY #30 tab Metoprolol Tartrate [Lopressor] 25 mg PO BID #60 tab Spironolactone [Aldactone] 12.5 mg PO DAILY #30 tab Amiodarone [Cordarone] 200 mg PO DIRECTED #60 tab Apixaban [Eliquis] 5 mg PO BID #30 tab Furosemide [Lasix] 20 mg PO DAILY #30 tab Continue busPIRone HCL [Buspar] 7.5 mg PO BID Pioglitazone [Actos] 30 mg PO DAILY Atorvastatin [Lipitor] 20 mg PO DAILY metFORMIN HCL 1,000 mg PO BID Discontinued Naproxen Sodium [Aleve] 220 mg PO BID PRN PRN Reason: Pain Losartan [Cozaar] 50 mg PO DAILY Discharge Medication List Atorvastatin [Lipitor] 20 mg PO DAILY 08/17/24 [History] Pioglitazone [Actos] 30 mg PO DAILY 08/17/24 [History] busPIRone HCL [Buspar] 7.5 mg PO BID 08/17/24 [History] metFORMIN HCL 1,000 mg PO BID 08/17/24 [History] Amiodarone [Cordarone] 200 mg PO DIRECTED #60 tab 08/19/24 [Rx] Apixaban [Eliquis] 5 mg PO BID #30 tab 08/19/24 [Rx] Furosemide [Lasix] 20 mg PO DAILY #30 tab 08/19/24 [Rx] Losartan [Cozaar] 25 mg PO DAILY #30 tab 08/19/24 [Rx] Metoprolol Tartrate [Lopressor] 25 mg PO BID #60 tab 08/19/24 [Rx] Spironolactone [Aldactone] 12.5 mg PO DAILY #30 tab 08/19/24 [Rx] Follow up Appointment(s)/Referral(s): Mikey Mcrae MD [STAFF PHYSICIAN] - 08/27/24 8:45 am Kelly Pate DO [Primary Care Provider] - 1-2 days (please call to make follow up appointment) Patient Instructions/Handouts: A-fib (Atrial Fibrillation) (ED), A-fib (Atrial Fibrillation) (DC) Activity/Diet/Wound Care/Special Instructions: fluid restriction 1800 cc/day Discharge Disposition: HOME SELF-CARE
== END 2024-08-19 16:20 | disposition home or self-care (01) | DRG 310 ==
LOC: EC 08:40 → 3SCARD 10:32 → 2SICU 19:59 → 3SCARD 21:24
PROVIDERS: ADMIT Hospitalist; ATTEND Hospitalist
DX: I48.91 Unspecified atrial fibrillation (principal); Q23.81 Bicuspid aortic valve; I42.9 Cardiomyopathy, unspecified; I10 Essential (primary) hypertension; F41.9 Anxiety disorder, unspecified; E78.00 Pure hypercholesterolemia, unspecified; E66.9 Obesity, unspecified; E11.9 Type 2 diabetes mellitus without complications; Z79.84 Long term (current) use of oral hypoglycemic drugs; Z79.899 Other long term (current) drug therapy; Z28.21 Immunization not carried out because of patient refusal
CPT/HCPCS: 36415; 71046; 80053; 83036; 83735; 84443; 84484; 85025; 85610; 85730; 93005; 93306; 96365; 96366; 96368; 96375; 99291

== ENCOUNTER → 2024-10-07 | Outpatient (CLI) | payer BC ==
[2024-10-07 07:59] LABS: African American GFR (CKD) >90 (>60 ml/min/1.73 sqM); Blood Urea Nitrogen 15 mg/dL (9-20); Non-African American GFR(CKD) >90 (>60 ml/min/1.73 sqM)
[2024-10-07 07:59] LABS: ALT 22 U/L (4-49); African American GFR (CKD) >90 (>60 ml/min/1.73 sqM); Blood Urea Nitrogen 15 mg/dL (9-20); Creatine Kinase 71 U/L (55-170); Non-African American GFR(CKD) >90 (>60 ml/min/1.73 sqM)
[2024-10-07 08:13] LABS: AST 29 U/L (17-59)
--- NOTE | 2024-10-07 08:53 | CT ---
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 CT DLP: 1550 mGycm, Automated exposure control for dose reduction was used. FINDINGS: Lungs/Pleura: No evidence of focal consolidation, pleural effusion or pneumothorax. Airway: Large airways are patent. Heart: Size within normal limits. No significant coronary artery calcifications. Vasculature: No evidence for intramural hematoma on noncontrast imaging. No evidence of intimal flap to suggest dissection. No aneurysm identified. Scattered atherosclerotic disease. There is no evidenc e for a filling defect within the pulmonary vasculature to suggest acute pulmonary embolism. The pul monary artery is of normal size. Ascending thoracic aorta measuring up to 3.4 cm. Mediastinum: No gross evidence of adenopathy. Musculoskeletal: No acute osseous abnormalities Soft Tissues/lymph nodes: Unremarkable. Lower neck: No significant findings. Upper Abdomen: No significant findings. IMPRESSION: No evidence for aortic aneurysm, dissection or occlusion. No evidence for pulmonary embolus in the ce ntral pulmonary vasculature. [facility], , 10/07/2024 8:51 AM
[2024-10-07 12:58] LABS: LDL Cholesterol,Calculated 62.6 mg/dL (0.0-131.0)
== END | disposition home or self-care (01) ==
LOC: RADCTMAIN 06:59
PROVIDERS: ATTEND Internal Medicine Interventional Cardiology
DX: I71.02 Dissection of abdominal aorta (principal)
CPT/HCPCS: 80061; 82565; 82550; 84450; 84460; 84520; 71275; 36415; Q9967